=== PATIENT | female | born 1995 | race Caucasian/White ===

== ENCOUNTER 2017-04-23 16:09 | Emergency (ER) | payer OTHER ==
[~2017-04-23] VITALS: Ht 157.5 cm; Wt 54.4 kg
[2017-04-23] MEDS ORDERED: ULTRAM 50MG TAB50 MG PO (17:13)
[2017-04-23] MEDS ORDERED: IBUPROFEN 600600 M1 PO (17:13)
[2017-04-23 17:34] VITALS: BP 114/81
== END 2017-04-23 17:37 | disposition home or self-care (01) ==
LOC: ER 16:09
DX: S03.01XA Dislocation of jaw, right side, initial encounter (principal); X58.XXXA Exposure to other specified factors, initial encounter; Y93.89 Activity, other specified; Y92.89 Other specified places as the place of occurrence of the external cause; Y99.8 Other external cause status

== ENCOUNTER 2017-08-07 01:45 | Emergency (ER) | payer OTHER ==
[~2017-08-07] VITALS: Ht 162.6 cm; Wt 59.0 kg
[~2017-08-07 01:45] MED LIST: IBUPROFEN 600600 M1 PO; ULTRAM 50MG TAB50 MG PO
[2017-08-07] MEDS ORDERED: IBUPROFEN 200200 M1 (02:01)
[2017-08-07] MEDS ORDERED: IBUPROFEN 600600 M1 PO (02:35)
[2017-08-07] MEDS ORDERED: SENNA-DOCUSATE1 EACH PO (02:35)
[2017-08-07] MEDS ORDERED: NORCO 5-325 TA1 EACH PO (02:35)
[2017-08-07 02:59] VITALS: BP 117/81
== END 2017-08-07 03:00 | disposition home or self-care (01) ==
LOC: ER 01:45
DX: S52.591A Other fractures of lower end of right radius, initial encounter for closed fracture (principal); W01.0XXA Fall on same level from slipping, tripping and stumbling without subsequent striking against object, initial encounter; Y93.89 Activity, other specified; Y92.89 Other specified places as the place of occurrence of the external cause; Y99.8 Other external cause status

== ENCOUNTER 2018-05-25 19:19 | Emergency (ER) | payer OTHER ==
[~2018-05-25] VITALS: Ht 162.6 cm; Wt 61.2 kg
[~2018-05-25 19:19] MED LIST changes: +IBUPROFEN 200200 M1; +NORCO 5-325 TA1 EACH PO; +SENNA-DOCUSATE1 EACH PO
[2018-05-25] MEDS ORDERED: KEFLEX500 M1 PO (22:21)
[2018-05-25] MEDS ORDERED: ULTRAM 50MG TAB50 MG PO (22:21)
[2018-05-25 22:32] VITALS: BP 109/66
== END 2018-05-25 22:33 | disposition home or self-care (01) ==
LOC: ER 19:19
DX: L03.213 Periorbital cellulitis (principal); R68.84 Jaw pain; R60.0 Localized edema; F17.210 Nicotine dependence, cigarettes, uncomplicated